=== PATIENT | male | born 1980 | race Caucasian/White ===

== ENCOUNTER 2023-06-26 17:16 | Emergency (ER) | payer OTHER ==
[2023-06-26 17:24] VITALS: BP 130/93; PULSE 68; RESP 16; TEMP 97.8; BMI 26.6
[2023-06-26] MEDS ORDERED: ACETAMINOPHEN 325 MG TABLET (FP) ONE (17:43)
[2023-06-26] MEDS ORDERED: FAMOTIDINE 20 MG TABLET ONE (17:43)
[2023-06-26] MEDS ORDERED: ONDANSETRON *ODT* 4 MG TABLET ONE (17:43)
[2023-06-26] MEDS ORDERED: MAG HYDROX/AL HYDROX/SIMETH 30 ML UNIT-DOSE CUP ONE (17:44)
[2023-06-26] MEDS: ACETAMINOPHEN 325 MG TABLET (FP) PO ONE (17:45)
[2023-06-26] MEDS: ONDANSETRON *ODT* 4 MG TABLET SL ONE (17:45)
[2023-06-26] MEDS: FAMOTIDINE 10 MG TABLET PO ONE (17:45)
[2023-06-26] MEDS: MAG HYDROX/AL HYDROX/SIMETH 30 ML UNIT-DOSE CUP PO ONE (18:04)
[2023-06-26] MEDS ORDERED: KETOROLAC TROMETHAMINE 30 MG/1 ML VIAL ONE (18:17)
[2023-06-26] MEDS ORDERED: diazePAM 5 MG TABLET ONE (18:41)
[2023-06-26] MEDS: diazePAM 5 MG TABLET PO ONE (18:44)
== END 2023-06-26 19:32 | disposition home or self-care (01) ==
LOC: FER 17:16
DX: R10.13 Epigastric pain (principal); R11.0 Nausea
CPT/HCPCS: 76705-TC; 99284-25; Q0162